=== PATIENT | male | born 1995 | race African-American/Black ===

== ENCOUNTER 2021-12-07 16:58 | Emergency (ER) | payer BC, OTHER ==
[~2021-12-07] VITALS: Ht 185.4 cm; Wt 90.7 kg
[~2021-12-07 16:58] MED LIST: ALLEGRA30 MG PO; HYDROXYZINE; MEDROLDOSEPACK PO; THERAGRAN-M AD1 EAC2 PO; VENTOLIN17 GM INH; ZYRTEC
[2021-12-07] MEDS ORDERED: NORCO5 PO (18:19)
[2021-12-07] MEDS ORDERED: IBU600 MG PO (18:19)
[2021-12-07 18:32] VITALS: BP 135/71
== END 2021-12-07 18:30 | disposition home or self-care (01) ==
LOC: ER 16:58
DX: S82.891A Other fracture of right lower leg, initial encounter for closed fracture (principal); S93.401A Sprain of unspecified ligament of right ankle, initial encounter; F12.90 Cannabis use, unspecified, uncomplicated; Z79.899 Other long term (current) drug therapy; Z91.010 Allergy to peanuts; W18.39XA Other fall on same level, initial encounter; Y93.67 Activity, basketball; Y92.89 Other specified places as the place of occurrence of the external cause; Y99.8 Other external cause status

== ENCOUNTER 2021-12-11 18:41 | Emergency (ER) | payer BC, OTHER ==
[~2021-12-11] VITALS: Ht 185.4 cm; Wt 90.7 kg
[~2021-12-11 18:41] MED LIST changes: +IBU600 MG PO; +NORCO5 PO
[2021-12-11 19:17] VITALS: BP 132/77
== END 2021-12-11 22:20 | disposition home or self-care (01) ==
LOC: ER 18:41
DX: S82.891D Other fracture of right lower leg, subsequent encounter for closed fracture with routine healing (principal); F12.90 Cannabis use, unspecified, uncomplicated; Z79.899 Other long term (current) drug therapy; Z91.010 Allergy to peanuts; Z91.013 Allergy to seafood; X58.XXXD Exposure to other specified factors, subsequent encounter